=== PATIENT | female | born 1995 | race Caucasian/White ===

== ENCOUNTER → 2019-01-09 | Outpatient (CLI) | payer OTHER ==
--- NOTE | 2019-01-09 14:04 | RADIOLOGY REPORT (SQ) ---
EXAM DESCRIPTION: U/S OB 14+ TRNABD 1GES W/O DOP COMPLETED DATE/TIME: 01/09/2019 1:35 pm REASON FOR STUDY: GROWTH SCAN COMPARISON: None. TECHNIQUE: Static and Dynamic grayscale imaging performed of gravid uterus using transabdominal appr oac. Additional selected color Doppler and spectral images recorded. All stored on PACS. LIMITATIONS: None. FINDINGS: FETUSES SEEN:1 EGA: 34 weeks 2 days Calculated using BPD,FL,HC,AC documented on images. No discrepancy with clinica l dates. JEANNINE: 02/18/2019 EFW: 2,426 grams PERCENTILE: 49 MALIK: 10.9 PLACENTA: Posterior. GRADE: I PRESENTATION: Cephalic. ANATOMY: HEART RATE: 137 beats per minute. FOUR CHAMBER HEART: Visualized. THREE VESSEL CORD: Yes. CORD INSERTION: Not visualized. KIDNEYS AND BLADDER: Visualized. Appear normal. STOMACH: Visualized. Appears normal. SPINE: Normal as visualized. BRAIN AND LATERAL VENTRICLES: Normal as visualized. OTHER: No other significant finding. MATERNAL ADNEXA: Maternal ovaries not visualized. CERVICAL LENGTH: Not visualized. OTHER: No other significant finding. IMPRESSION: LIVING INTRAUTERINE . ESTIMATED GESTATIONAL AGE 34 weeks 2 days. NO VISUALIZED ANOMALIES. Trimester of : Third trimester - 28 weeks to delivery. TECHNICAL DOCUMENTATION: JOB ID: [id number]- All Rights Reserved Reading location - IP/workstation name: [email or web address]
== END ==
LOC: RAD 12:47
PROVIDERS: ATTEND Obstetrics & Gynecology
DX: Z36.4 Encounter for antenatal screening for fetal growth retardation (principal); Z3A.34 34 weeks gestation of pregnancy
CPT/HCPCS: 76805